=== PATIENT | female | born 1965 | race Caucasian/White ===

== ENCOUNTER 2018-07-10 08:13 | Outpatient (CLI) | payer BC ==
--- NOTE | 2018-07-10 09:35 | CT ---
CT NECK WITH CONTRAST: Date: 07/10/18 Multiple axial tomograms obtained through the neck with IV enhancement. INDICATION: Parotid sialolithiasis. Swelling and pain right parotid gland. No comparison. FINDINGS: Right parotid gland shows diffuse enhancement, asymmetric with the left. This gland is mildly edemato us and slightly enlarged compared to the left. There is dilatation of Stensen's duct. There is linear shaped calculus in the mid Stensen's duct measuring approximately 3.0 x 10.0 mm in the axial plane p roducing obstructive change in this duct. Along the lateral wall of this duct, just proximal to this calculus, is a small, ring-enhancing cysti c mass measuring approximately 1.0 cm. This may represent a separate dilated ductal structure or a sm all abscess. Submandibular glands and thyroid appear unremarkable. Nasopharynx unremarkable. Oropharynx unremarkable. Hypopharynx and larynx unremarkable. Nonspecific Level I submandibular nodes are subcentimeter. The Level II jugulodigastric nodes are mildly prominent with a right Level II lymph node anterior to the vascular bundle measuring up to 1.5 cm. There are other smaller IIA and IIB lymph nodes bilateral ly. No significant level III, level IV, or level V adenopathy. The osseous structures are unremarkable. The paranasal sinuses appear clear. IMPRESSION: Right parotid gland shows mild enlargement and abnormal enhancement, consistent with parotiditis. Mani nsen's duct is dilated and there is an obstructing calculus in mid Stensen's duct at the level of the mid body of the mandible with dimensions given above. There is dilatation of Stensen's duct proximal to this calculus. Just proximal to this calculus and along the lateral margin of Stensen's duct is a small ring enhancing cystic lesion as described above. POS: [facility]
[2018-07-10] MEDS ORDERED: ISOVUE-370 76%-LOCM 1 ML ONE (11:50)
== END 2018-07-10 08:14 | disposition home or self-care (01) ==
LOC: BICCT 08:13
PROVIDERS: ATTEND Otolaryngology Plastic Surgery within the Head & Neck
DX: K11.5 Sialolithiasis (principal); K11.1 Hypertrophy of salivary gland
CPT/HCPCS: 70491; Q9966

== ENCOUNTER 2018-07-22 09:08 | Day surgery (SDC) | payer BC ==
[2018-07-21 13:48] VITALS: BMI 34.3
[2018-07-22] MEDS ORDERED: Lidocaine 1% w/Epinephrine 1:100K 20 ML VIAL ONE (11:48)
[2018-07-22] MEDS ORDERED: Fentanyl 250 MCG/5 ML VIAL ONE (12:13)
[2018-07-22] MEDS ORDERED: Clindamycin/D5W 900 mg/50 ml Premix Bag ONE (12:35)
[2018-07-22] MEDS ORDERED: Bacitracin Zinc Ointment 30 gm TUBE ONE (12:54)
[2018-07-22] MEDS ORDERED: Promethazine HCl 25 MG/ML VIAL ONE (13:03)
[2018-07-22] MEDS ORDERED: Albuterol Sulfate 1.25 MG/3 ML NEB ONE (13:13)
[2018-07-22] MEDS ORDERED: SUGAMMADEX SODIUM 500 MG/5 ML VIAL ONE (13:29)
[2018-07-22] MEDS ORDERED: Glycopyrrolate 0.2 MG/ML 5 ML SYRINGE ONE (15:02)
[2018-07-22] MEDS ORDERED: Dexamethasone 20 MG/5 ML VIAL ONE (15:02)
[2018-07-22] MEDS ORDERED: ePHEDrine 50 MG/ML VIAL ONE (15:02)
[2018-07-22] MEDS ORDERED: PROPOFOL 200 MG/20 ML VIAL ONE (15:02)
[2018-07-22] MEDS ORDERED: Ondansetron PF 4 MG/2 ML Vial ONE (15:02)
[2018-07-22] MEDS ORDERED: PHENYLEPHRINE-NS 100 MCG/ML 10 ML SYRINGE ONE (15:02)
[2018-07-22] MEDS ORDERED: Rocuronium Bromide 10 MG/ML (10ML VIAL) ONE (15:02)
[2018-07-22] MEDS ORDERED: Lidocaine 1% PF 5 ML VIAL ONE (15:02)
[2018-07-22] MEDS ORDERED: Hydrocodone-Acetamin 15 ML UDCUP ONE (15:17)
--- NOTE | 2018-07-23 11:20 | OP ---
DATE OF PROCEDURE: 07/22/2018 PREOPERATIVE DIAGNOSIS: Right parotid sialoadenitis. POSTOPERATIVE DIAGNOSIS: Right parotid sialoadenitis. PROCEDURE PERFORMED: Transoral parotid with removal of stone. ESTIMATED BLOOD LOSS: 5 mL. COMPLICATIONS: None. ANESTHESIA: GETA. DESCRIPTION OF PROCEDURE: The patient was taken to operating room and placed supine on the table. General endotracheal anesthesia was obtained by the anesthesia staff. Following this, oral cavity was retracted with dental retractors. The right cheek was palpated bimanually. A small linear stone was identified. This area was marked. Following this, the lacrimal duct probes were then inserted through the natural parotid duct and this duct was gently flayed open with a 15 blade. Following this, a small stone was removed using Blakesley forceps. Thus, mucosal lining of the oral cavity was then reapproximated using a gut stitch leaving the orifice of the parotid duct intact. The patient tolerated the procedure well. Job ID: [id number]
== END 2018-07-22 16:04 | disposition home or self-care (01) ==
LOC: SDC 09:08
PROVIDERS: ATTEND Otolaryngology Plastic Surgery within the Head & Neck
PROC: 0CC Mouth and Throat, Extirpation (ICD-10-PCS; principal; 2018-07-22)
DX: K11.5 Sialolithiasis (principal); K11.20 Sialoadenitis, unspecified; Z87.891 Personal history of nicotine dependence; Z79.899 Other long term (current) drug therapy
CPT/HCPCS: 36415; 85014; 93005; 93010; J1100; J2001; J2405; J2550; J2704; J3010; J3490

== ENCOUNTER 2019-01-04 08:06 | Outpatient (CLI) | payer BC ==
--- NOTE | 2019-01-04 09:06 | CT ---
CT NECK SOFT TISSUES WITH CONTRAST: CLINICAL INDICATION: Sialadenitis. COMPARISON: 07/10/2018 FINDINGS: Aerodigestive tract:Free from significant mass effect. Parotid gland: Redemonstration of asymmetric hyperdensity and inflammation of the right parotid gland with overlying subcutaneous edema. There has been decreased dilatation of Stensen's duct. The previous 1 cm rim hyperdense focus along the course of Stensen's duct is grossly stable as is the jorge l lodocholith with just anteriorly. Submandibular glands: No intrinsic mass, or inflammation. Lymph nodes: Regional lymph nodes are stable. Thyroid gland: Unremarkable. Incidental findings: None of significance. IMPRESSION: Interval decreased dilatation of Stensen's duct with persistent approximate 1 cm rim hyperdense focus along the course of Stensen's duct adjacent sialodocholith. There remains asymmetric hyperdensity and inflammation of the right parotid gland with overlying cellulitis of the right buccal space. Transcribed Date/Time: 01/04/2019 9:25 AM
[2019-01-04] MEDS ORDERED: ISOVUE-370 76%-LOCM 1 ML ONE (19:39)
== END 2019-01-04 08:07 | disposition home or self-care (01) ==
LOC: BICCT 08:06
PROVIDERS: ATTEND Otolaryngology Plastic Surgery within the Head & Neck
DX: K11.20 Sialoadenitis, unspecified (principal)
CPT/HCPCS: 70491; Q9966

== ENCOUNTER 2019-01-26 10:54 | Outpatient (CLI) | payer BC ==
--- NOTE | 2019-01-26 12:19 | MMO ---
Bilateral MAMMO Bilat Screen [facility]. CLINICAL HISTORY: Patient is 54 years old and is seen for screening. The patient has no family history of breast cancer. The patient has no personal history of cancer. The patient has a history of left Stereotatic Biopsy in June, - benign. VIEWS: The views performed were: bilateral craniocaudal with tomosynthesis and bilateral mediolateral oblique with tomosynthesis. FILMS COMPARED: The present examination has been compared to prior imaging studies performed at [facility] on 06/15/2014, 06/16/2014 and 09/21/2015. This study has been interpreted with the assistance of computer-aided detection. MAMMOGRAM FINDINGS: The breasts are heterogeneously dense, which could obscure a lesion on mammography. There are no suspicious masses, suspicious calcifications, or new areas of architectural distortion. IMPRESSION: THERE IS NO MAMMOGRAPHIC EVIDENCE OF MALIGNANCY. A ROUTINE FOLLOW-UP MAMMOGRAM IN 1 YEAR IS RECOMMENDED. THE RESULTS OF THIS EXAM WERE SENT TO THE PATIENT. ACR BI-RADS Category 1 - Negative MAMMOGRAPHY NOTE: 1. A negative mammogram report should not delay a biopsy if a dominant of clinically suspicious mass is present. 2. Approximately 10% to 15% of breast cancers are not detected by mammography. 3. Adenosis and dense breasts may obscure an underlying neoplasm. Reported by: CHRISTIAN RAMIREZ MD Electonically Signed: [id number]
== END 2019-01-26 10:55 | disposition home or self-care (01) ==
LOC: BICMAMMO 10:54
PROVIDERS: ATTEND Obstetrics & Gynecology
DX: Z12.31 Encounter for screening mammogram for malignant neoplasm of breast (principal); Z91.89 Other specified personal risk factors, not elsewhere classified
CPT/HCPCS: 77063; 77067